=== PATIENT | male | born 2000 | race Caucasian/White ===

== ENCOUNTER 2019-05-08 21:21 | Inpatient (IN) | payer OTHER ==
[~2019-05-08] VITALS: Ht 182.9 cm; Wt 78.0 kg
[2019-05-08 22:04] VITALS: BP_SYST 147
--- NOTE | 2019-05-08 22:11 | NUR ---
Pt placed to ER waiting room in stable condition.
--- NOTE | 2019-05-08 23:04 | NUR ---
Patient to ER bed 05 to gown for evaluation. Side rails up.
--- NOTE | 2019-05-08 23:05 | NUR ---
Pt brought to ED by girlfriend. Pt Alert and Oreinted x4. Pt states that his tongue began to hurt and swell on thursday of this week. (approx 3 days ago). Pt states that his tongue began to swell and hurt, developing a thick white film over the past two days. pt states that his gums are also starting to bleed. Pt Denied any use of chemicals or smoking of any substance. Pt denies chest pain, sob or difficulty breathing, N/V, Diarrhea, Dizziness, blurred vision. Pt denies any other medical complaint at this time. Pt Vss, Resting in ED bed comfortably, Will continue to monitor.
--- NOTE | 2019-05-09 00:10 | NUR ---
Dr. Ruiz at bedside.
[2019-05-09] MEDS ORDERED: LIDOCAINE VISCOUS 2%, 15 ML UDC MM ONE (00:15)
--- NOTE | 2019-05-09 01:07 | NUR ---
Pt states mild relief from Oral pain after medication admin of viscous lidocaine.
[2019-05-09] MEDS ORDERED: KETOROLAC TROMETHAMINE 30 MG VIAL IVP ONE (01:45)
[2019-05-09] MEDS ORDERED: NACL 0.9% 1,000 ML IV ONE (01:45)
--- NOTE | 2019-05-09 01:57 | NUR ---
ANGELIQUE Foreman bedside assisting with Blood Draw and IV Start
[2019-05-09 02:20] LABS: MEAN CORPUSCULAR VOLUME 92 fL (79.0-98.0)
[2019-05-09 02:30] LABS: CALCIUM 9.2 mg/dL (8.4-11.0)
--- NOTE | 2019-05-09 02:30 | NUR ---
Pt states pain has been moderately relieved. Pt Resting Comfortably in ED bed. Provided new warm blanket
[2019-05-09 02:31] LABS: BASOPHILS % (AUTO) 0.1 % (0.0-2.0); EOSINOPHILS % (AUTO) 0.4 % (0.0-4.0); HEMATOCRIT 49.5 % (36-54); HEMOGLOBIN 16.8 g/dL (14.0-18.0); LYMPHOCYTES # (AUTO) 1.1 K/uL (1.0-5.5); LYMPHOCYTES % (AUTO) 11.6 % (20.5-51.5); MEAN CORPUSCULAR HEMOGLOBIN 31 pg (27-31); MEAN CORPUSCULAR HGB CONC 34 % (32-36); MONOCYTES % (AUTO) 10.3 % (1.7-9.3); NEUTROPHILS # (AUTO) 7.5 K/uL (1.8-7.7); NEUTROPHILS % (AUTO) 77.6 % (40.0-70.0); PLATELET COUNT (AUTO) 148 K/uL (130-430); RED CELL DISTRIBUTION WIDTH 13.1 % (9.0-15.0); WHITE BLOOD COUNT (AUTO) 9.6 K/uL (4.5-11.0)
[2019-05-09 02:35] LABS: ALBUMIN 4.4 g/dL (3.4-4.8); CREATININE 0.9 mg/dL (0.55-1.30); POTASSIUM 3.9 mmol/L (3.5-5.1)
[2019-05-09] MEDS ORDERED: cefTRIAXone 1 GM IVPB PREMIX 50 ML IV ONE (03:30)
[2019-05-09] MEDS ORDERED: FLUCONAZOLE 100 MG TABLET (DIFLUCAN) PO ONE (03:30)
--- NOTE | 2019-05-09 04:00 | NUR ---
Dr. Ruiz bedside for Pt update
[2019-05-09] MEDS ORDERED: ACETAMINOPHEN 325 MG TABLET PO PRN (05:15)
--- NOTE | 2019-05-09 05:21 | NUR ---
Patient will be admitted to care of Dr. Panchal. Admitted to Med/Surg unit. Will go to room 101-b. Belongings list completed. Summary report printed. Report will be given at bedside.
--- NOTE | 2019-05-09 05:36 | NUR ---
ADMISSION NOTE Received patient from ER via epifanio, received report from ANGELIQUE whitley. Patient admitted with diagnosis of dysphagia. Patient oriented to hospital routine, call light, toileting and safety-patient verbalized understanding.
[2019-05-09 05:37] VITALS: BP_SYST 100
--- NOTE | 2019-05-09 05:56 | NUR ---
Consultation Paged Reason for consultation: Infection Was consult called: Y Person who was notified: Eileen Consulting Physician: Dr. Ocampo Electrode Turner And Finisher Ordering Physician: Dr. Panchal
--- NOTE | 2019-05-09 07:30 | NUR ---
rn opening note Report was endorsed by night nurse. Patient appears to be resting with both eyes closed no signs of any distress, breathing is equal and non labored. Patient has all safety precautions in place. Family member at bed side. will continue to monitor.
[2019-05-09 08:14] VITALS: BP_SYST 104
[2019-05-09] MEDS ORDERED: FLUCONAZOLE 200 mg/ NS 100 ML IV SCH (09:00)
--- NOTE | 2019-05-09 09:48 | NUR ---
Medication Patient scheduled medication given per order. Patient is awake and alert, sitting up in bed. Patient states he could not eat breakfast due to mouth pain. Patient has no signs of shortness of breath. Patient educated director of collections and archives light for assistance, call light is with patient. Collected throat culture as ordered and sent to lab. patient has no other complaints at this time. no other needs at time. will continue to monitor.
--- NOTE | 2019-05-09 11:44 | NUR ---
rn rounding Patient is awake and alert sitting up in bed no signs of any distress, breathing is equal and non labored. Patient states no complaints at this time. Patient educated to use call light for assistance. Call light is with patient. patient has no other needs at this time. will continue to monitor.
[2019-05-09 12:05] VITALS: BP_SYST 105
--- NOTE | 2019-05-09 13:00 | NUR ---
MEDICATION Patients scheduled medication given as ordered. Patient is sitting up in bed no signs of distress, breathing is equal and non labored. Patient states unable to eat due to mouth soreness. Patient educated sec reporting consultant light for assistance. Patient states no other needs at this time. will continue to monitor.
[2019-05-09] MEDS: AMPICILLIN SODIUM 1 GM in NS 50 ML IV SCH ×3 (13:01→23:37)
--- NOTE | 2019-05-09 15:00 | NUR ---
rn rounding Patient is awake and alert, laying in bed no signs of any distress, breathing is equal and non labored. All safety precautions in place. will continue to monitor. Call light is with patient. educated to sommer for assistance.
--- NOTE | 2019-05-09 16:43 | NUR ---
rn rounding Patient moved to room 109 C. Patient is awake and alert sitting up in bed, family member at bed side. Patient educated internal communications intern light for assistance. Patient has call light with patient. Patient has all safety precautions in place. Patient has no other needs at this time. will continue to monitor.
[2019-05-09 16:55] VITALS: BP_SYST 110
--- NOTE | 2019-05-09 17:45 | NUR ---
MEDICATION/DR. PAREDES Patient is awake and alert no signs of any distress,breathing is equal and non labored. Patient is unable to eat due to mouth sore ness. Patient has sister at bed side. Patients scheduled mediaciton given per order.
[2019-05-09] MEDS ORDERED: NYSTATIN 500,000 UNITS/5 ML UDC PO ONE (18:00)
[2019-05-09] MEDS ORDERED: ACETAMINOPHEN 650 MG/20.3 ML UDC PO ONE (18:15)
[2019-05-09] MEDS: D5LR 1,000 ML IV SCH (18:36)
--- NOTE | 2019-05-09 18:49 | NUR ---
RN CLOSING NOTE PATIENT IS AWAKE AND ALERT, SITTING UP IN BED. MEDICATION GIVEN ORDERED. ALSO PROVIDED PATIENT WITH URINE SAMPLE CUP. PATIENT EDUCATED TO USE CALL LIGHT FOR ASSISTANCE. CALL LIGHT IS WITH PATIENT. PATIENT HAS NO OTHER NEEDS AT THIS TIME.
--- NOTE | 2019-05-09 19:30 | NUR ---
Opening notes Received report. Patient is resting in bed. No signs of distress noted. Breathing even and unlabored. IV patent and intact, infusing fluids. Updated patient on plan of care. Patient is to have nothing by mouth after midnight for abdominal ultrasound in the morning. A urine sample also needs to be collected. Patient verbalized understanding. Supplies for urine sample provided. Call light with the patient. Safety precautions in place.
[2019-05-09 20:00] VITALS: BP_SYST 100
[2019-05-09] MEDS: ACYCLOVIR 400 MG TABLET PO SCH (20:30)
--- NOTE | 2019-05-09 21:00 | NUR ---
Medications given. Educated the action and side effects of medications. Patient verbalized understanding and tolerated well. Call light with the patient. Safety precautions in place.
[2019-05-09] MEDS: NYSTATIN 500,000 UNITS/5 ML UDC PO SCH (23:38)
[2019-05-10] MEDS: LIDOCAINE VISCOUS 2%, 15 ML UDC MM PRN ×4 (00:11→21:29)
--- NOTE | 2019-05-10 00:15 | NUR ---
Pain Patient complain of pain to mouth. Offered patient prn pain medication. Educated the action and side effects of medications. Patient states medication helps and patient is able to talk drink water. No other needs. Call light with the patient. Safety precautions in place.
[2019-05-10 01:33] VITALS: BP_SYST 107
--- NOTE | 2019-05-10 02:00 | NUR ---
Resting Patient resting in bed, on laptop. no signs of distress noted. Breathing even and unlabored. IVF infusing well. Call light with the patient. Safety precautions in place.
--- NOTE | 2019-05-10 04:00 | NUR ---
Sleeping No signs of distress noted. Breathing even and unlabored. IVF infusing well. Call light with the patient. Safety precautions in place.
[2019-05-10] MEDS: AMPICILLIN SODIUM 1 GM in NS 50 ML IV SCH ×4 (05:32→23:55)
[2019-05-10] MEDS: NYSTATIN 500,000 UNITS/5 ML UDC PO SCH ×4 (05:34→23:55)
[2019-05-10] MEDS: D5LR 1,000 ML IV SCH ×3 (05:34→18:48)
--- NOTE | 2019-05-10 06:29 | NUR ---
Closing notes Patient is resting comfortably in bed. No signs of distress noted. Breathing even and unlabored. IV patent and intact, infusing fluids. reminded patient about collecting urine sample. Patient verbalized understanding. All needs met throughout the shift. Call light with the patient. Safety precautions in place. Will endorse care to day shift RN.
[2019-05-10 07:37] LABS: ALBUMIN 3.5 g/dL (3.4-4.8); CALCIUM 8.5 mg/dL (8.4-11.0); CREATININE 0.84 mg/dL (0.55-1.30); PHOSPHORUS 4.6 mg/dL (2.7-4.5); POTASSIUM 3.8 mmol/L (3.5-5.1); TOTAL BILIRUBIN 0.9 mg/dL (0.0-1.0)
[2019-05-10 07:44] LABS: BASOPHILS % (AUTO) 0.3 % (0.0-2.0); EOSINOPHILS # (AUTO) 0.1 K/uL (0.0-0.4); EOSINOPHILS % (AUTO) 1.5 % (0.0-4.0); HEMATOCRIT 42.4 % (36-54); HEMOGLOBIN 14.4 g/dL (14.0-18.0); LYMPHOCYTES # (AUTO) 2.4 K/uL (1.0-5.5); LYMPHOCYTES % (AUTO) 35.4 % (20.5-51.5); MEAN CORPUSCULAR HEMOGLOBIN 31 pg (27-31); MEAN CORPUSCULAR HGB CONC 34 % (32-36); MEAN CORPUSCULAR VOLUME 92 fL (79.0-98.0); MONOCYTES # (AUTO) 0.6 K/uL (0.0-1.0); MONOCYTES % (AUTO) 8.8 % (1.7-9.3); NEUTROPHILS # (AUTO) 3.7 K/uL (1.8-7.7); PLATELET COUNT (AUTO) 139 K/uL (130-430); RED BLOOD CELL COUNT(AUTO) 4.61 MIL/uL (4.2-6.2); RED CELL DISTRIBUTION WIDTH 13.3 % (9.0-15.0)
--- NOTE | 2019-05-10 07:44 | NUR ---
OPENING NOTES: RECEIVED PATIENT FROM PICTURE HANGER NURSE. PATIENT IS SLEEPING. FAMILY AT BEDSIDE. NO SIGNS OF DISTRESS OR SHORTNESS OF BREATH NOTED. IV SITE IS PATENT WITH NO SIGNS OF INFILTRATION. PATIENT IS TOLERATING OXYGEN AT ROOM AIR. PATIENT IN STABLE CONDITION. SAFETY AND FALL PRECAUTIONS ARE IN PLACE. BED LOCKED IN LOWEST POSITION WITH CALL LIGHT IN REACH. WILL CONTINUE TO MONITOR PATIENT FOR ANY CHANGES.
[2019-05-10 07:58] LABS: WHITE BLOOD COUNT (AUTO) 6.9 K/uL (4.5-11.0)
--- NOTE | 2019-05-10 08:15 | NUR ---
MD ROUNDS: DR. FORD MAKING ROUNDS. AWARE OR PATIENT'S CONDITIONS. NEW ORDERS GIVEN.
[2019-05-10 08:20] VITALS: BP_SYST 110
[2019-05-10 09:07] LABS: ERYTHROCYTE SEDIMENTATION RATE 6 MM/HR (0-15)
[2019-05-10] MEDS: MICAFUNGIN SODIUM 100 MG in NS 100 ML IV SCH (09:13)
[2019-05-10] MEDS: ACYCLOVIR 400 MG TABLET PO SCH ×2 (09:22→21:29)
[2019-05-10] MEDS: ACETAMINOPHEN 650 MG/20.3 ML UDC PO SCH ×3 (09:22→21:29)
[2019-05-10 10:10] LABS: BILIRUBIN,URINE 1+ (NEGATIVE); BLOOD, URINE NEGATIVE (NEGATIVE); CLARITY/URINE CLEAR (CLEAR); COLOR,URINE YELLOW (YELLOW); GLUCOSE,URINE NEGATIVE (NEGATIVE); KETONES,URINE TRACE (NEGATIVE); LEUKOCYTE ESTERASE ,URINE NEGATIVE (NEGATIVE); NITRITE, URINE NEGATIVE (NEGATIVE); PROTEIN URINE NEGATIVE (NEGATIVE)
--- NOTE | 2019-05-10 10:15 | NUR ---
RN ROUNDS: PATIENT IS AWAKE AND ALERT x4. FAMILY AT BEDSIDE. PATIENT STATES HIS PAIN IS FEELING BETTER. NO SIGNS OF DISTRESS OR SHORTNESS OF BREATH NOTED. PATIENT IN STABLE CONDITION. WILL CONTINUE TO MONITOR PATIENT FOR ANY CHANGES.
[2019-05-10 10:23] LABS: BARBITURATE, URINE NEGATIVE (NEG <=200); BENZODIAZEPINE, URINE NEGATIVE (NEG <=150); CANNABINOID, URINE NEGATIVE (NEG <=50); COCAINE, URINE NEGATIVE (NEG <=150); METHAMPHETAMINES SCREEN,URINE NEGATIVE (NEG <=500); OPIATE, URINE NEGATIVE (NEG <=100); PHENCYCLIDINE SCREEN,URINE NEGATIVE (NEG <=25); UR TRICYCLIC ANTIDEPRESSANTS NEGATIVE (NEG <=300); URINE AMPHETAMINE NEGATIVE (NEG <=500); URINE METHADONE NEGATIVE (NEG <=200); URINE OXYCODONE SCREEN NEGATIVE (NEG <=100); URINE PROPOXYPHENE SCREEN NEGATIVE (NEG <=300)
[2019-05-10 12:09] VITALS: BP_SYST 104
--- NOTE | 2019-05-10 12:44 | NUR ---
RN ROUNDS: PATIENT IS AWAKE AND ALERT x4. NO SIGNS OF DISTRESS OR SHORTNESS OF BREATH NOTED. IV SITE IS PATENT WITH NO SIGNS OF INFILTRATION. PATIENT IN STABLE CONDITION. WILL CONTINUE TO MONITOR PATIENT FOR ANY CHANGES.
--- NOTE | 2019-05-10 14:10 | NUR ---
RN ROUNDS: PATIENT IS AWAKE AND ALERT x4 LAYING IN BED. NO SIGNS OF DISTRESS OR SHORTNESS OF BREATH NOTED. PATIENT IN STABLE CONDITION. WILL CONTINUE TO MONITOR PATIENT FOR ANY CHANGES.
[2019-05-10] MEDS ORDERED: FLU VACC QS2019-20 36MOS UP/PF 60 MCG/0.5 ML SYRINGE I.M. PRN (14:30)
--- NOTE | 2019-05-10 14:41 | NUR ---
Dietitian Recommendations * Recommend pureed, vegan diet * ONS Ensure Enlive, Ensure Clear, and Glucerna are not indicated as pt prefers not to consume animal-based products BERNIE, RD Please refer to Nutrition Assessment for details. Addendum: 05/10/19 at [address] Amended: Links added.
[2019-05-10 15:37] VITALS: BP_SYST 95
--- NOTE | 2019-05-10 16:00 | NUR ---
RN ROUNDS: PATIENT IS AWAKE AND ALERT x4 SITTING UP IN BED. FAMILY AT BEDSIDE. PATIENT STATES HE IS HAVING PAIN 6/10 ON HIS TONGUE. PAIN MEDICATION GIVEN. NO SIGNS OF DISTRESS OR SHORTNESS OF BREATH NOTED. PATIENT IN STABLE CONDITION. WILL CONTINUE TO MONITOR PATIENT FOR ANY CHANGES. Addendum: 05/10/19 at 1603 by Liz Bonds RN IV SITE IS INFILTRATED. WILL ATTEMPT TO PUT ANOTHER IV IN.
--- NOTE | 2019-05-10 16:20 | NUR ---
IV REINSERTION: IV SITE BECAME INFILTRATED. IV CATHETER REMOVED AND INTACT. NO ACTIVE BLEEDING NOTED. NEW IV IN LEFT AC 20 G. PATIENT TOLERATED IT WELL. SUCCESSFUL AFTER 1 ATTEMPT. ASEPTIC TECHNIQUE USED. IV SITE IS PATENT WITH NO SIGNS OF INFILTRATION AND FLUSHES. WILL CONTINUE TO MONITOR.
--- NOTE | 2019-05-10 16:40 | NUR ---
MD ROUNDS: DR. PAREDES MAKING ROUNDS. AWARE OF PATIENT'S CONDITION. NEW ORDERS GIVEN.
[2019-05-10] MEDS ORDERED: MULTIVIT-MINERALS/FERROUS GLUC 15 ML UDC PO ONE (17:15)
[2019-05-10] MEDS: ERGOCALCIFEROL 8000 UNITS/ML ORAL SOLUTION, 60 ML BOTTLE PO SCH (18:33)
--- NOTE | 2019-05-10 18:38 | NUR ---
CLOSING NOTES: PATIENT IS AWAKE AND ALERT x4 LAYING IN BED. NO SIGNS OF DISTRESS OR SHORTNESS OF BREATH NOTED. PATIENT IS TOLERATING OXYGEN AT ROOM AIR. IV SITE IS PATENT WITH NO SIGNS OF INFILTRATION. PATIENT IN STABLE CONDITION. SAFETY AND FALL PRECAUTIONS ARE IN PLACE. BED LOCKED IN LOWEST POSITION WITH CALL LIGHT IN REACH. WILL ENDORSE PATIENT CARE TO ONCOMING SEED CLEANING MACHINE OPERATOR NURSE.
--- NOTE | 2019-05-10 19:30 | NUR ---
Opening notes Received report. Patient is resting in bed, no signs of distress noted. Breathing even and unlabored. IV patent and intact, infusing fluids. Patient verbalizes he is having a better day. Patient did not eat any dinner, states he is going to try eat later. No needs at this time. Call light with the patient. Safety precautions in place.
[2019-05-10 20:00] VITALS: BP_SYST 112
--- NOTE | 2019-05-10 21:39 | NUR ---
Medications Scheduled and prn pain medication given. Educated the action and side effects of medications. Patient verbalized understanding and tolerated well. No signs of allergic reaction noted. Offered patient flu shot at this time. Patient states he wants flu shot upon discharge. No other needs. call light with the patient. Safety precautions in place.
[2019-05-11] VITALS: BP_SYST 106
--- NOTE | 2019-05-11 | NUR ---
Resting Patient resting, no signs of distress noted. Breathing even and unlabored. IV ABX hung. Patient noted with red rash on left thigh that patient states started from early that afternoon. Patient states it is a little itchy, but does not hurt. Will inform MDs. No other needs. Call light with the patient. Safety precautions in place.
--- NOTE | 2019-05-11 02:30 | NUR ---
Sleeping No signs of distress noted. Breathing even and unlabored. IVF infusing well. call light with the patient. Safety precautions in place.
--- NOTE | 2019-05-11 04:30 | NUR ---
Sleeping No signs of distress noted. breathing even and unlabored. IVF infusing well. No needs at this time. Call light with the patient. Safety precautions in place.
[2019-05-11] MEDS: AMPICILLIN SODIUM 1 GM in NS 50 ML IV SCH (06:00)
[2019-05-11] MEDS: NYSTATIN 500,000 UNITS/5 ML UDC PO SCH ×2 (06:00→12:53)
[2019-05-11] MEDS: D5LR 1,000 ML IV SCH (06:00)
--- NOTE | 2019-05-11 06:52 | NUR ---
Closing notes Patient resting in bed. No signs of distress noted. Breathing even and unlabored. IV patent and intact, infusing fluids. All needs met throughout the shift. Call light with the patient. Safety precautions in place. Will endorse care to day shift RN.
--- NOTE | 2019-05-11 07:30 | NUR ---
OPENING NOTE Patient resting in the bed with eyes closed. No acute distress. IV intact to LAC, no redness, no swelling, no drainage. On D5 LR at 120ml/hr, infusing well. Safety measure maintained. Call light within reached. Bed locked in low position, side rails up. Will continue to monitor.
[2019-05-11 07:45] VITALS: BP_SYST 97
[2019-05-11] MEDS ORDERED: MULTIVIT-MINERALS/FERROUS GLUC 15 ML UDC PO SCH (09:00)
--- NOTE | 2019-05-11 09:12 | NUR ---
BATHROOM Patient ambulated to bathroom in steady gait. Safety measure maintained. Continue to monitor.
--- NOTE | 2019-05-11 09:45 | NUR ---
RECEIVED THE CALL BACK FROM AMAURI BECKWITH Received the call back from Dr. Beltran, on-call for Dr. Ocampo, reported to Dr. Beltran patient received the first dose of Mycamine IVPB yesterday and noted the rash on the left thigh last night, denied of itching. Asked id she wanted to continue to give Mycamine this morning. Dr. Beltran stated "continue to give the Mycamine but infuse the rate in half, if it runs 1 hour, make it runs 2 hour."
[2019-05-11] MEDS: ACETAMINOPHEN 650 MG/20.3 ML UDC PO SCH (10:28)
[2019-05-11] MEDS: ERGOCALCIFEROL 8000 UNITS/ML ORAL SOLUTION, 60 ML BOTTLE PO SCH (10:29)
[2019-05-11] MEDS: MICAFUNGIN SODIUM 100 MG in NS 100 ML IV SCH (10:29)
[2019-05-11] MEDS: ACYCLOVIR 400 MG TABLET PO SCH (10:29)
--- NOTE | 2019-05-11 10:55 | NUR ---
ROUND Patient resting in the bed. No acute distress. IV intact, IV antibiotic infusing well. Safety measure maintained. Call light within reached. Bed locked in low position, side rails up. Continue to monitor.
[2019-05-11 11:30] VITALS: BP_SYST 101
--- NOTE | 2019-05-11 12:30 | NUR ---
SEEN AND EXAMINED BY SOPHIE JACKSON WITH DISCHARGE ORDER.
[2019-05-11] MEDS ORDERED: FLUC200T PO (13:09)
[2019-05-11 13:13] VITALS: BP_SYST 101
[2019-05-11] MEDS ORDERED: NYST50002 PO (13:15)
[2019-05-11] MEDS ORDERED: [UNRECOGNIZED DRUG - OTHER] (13:19)
[2019-05-11] MEDS ORDERED: LIDO15SO2 MM (13:21)
[2019-05-11] MEDS ORDERED: MULT-1117 PO (13:24)
--- NOTE | 2019-05-11 14:32 | NUR ---
D/C Patient Patient given medication reconciliation form and D/C instructions. Exit Care provided. Patient verbalized understanding. MD discussed with patient the results and treatment provided. Ambulatory with steady gait for discharge to home. Patient in stable condition, ID band removed. IV catheter removed, intact and dressing applied, no active bleeding. Rx of Diflucan, Nystatin Susp, Viscous Lidocaine, and multiple vitamin with mineral given. Patient educated on pain management. All belongings sent with patient.
== END 2019-05-11 14:32 | disposition home or self-care (01) | DRG 153 ==
LOC: SED 21:21 → SMU 05-09 05:12
PROVIDERS: ADMIT Internal Medicine; ATTEND Internal Medicine
DX: J02.9 Acute pharyngitis, unspecified (principal); B37.0 Candidal stomatitis; B27.90 Infectious mononucleosis, unspecified without complication; K14.0 Glossitis; R13.10 Dysphagia, unspecified
CPT/HCPCS: 36415; 76700-TC; 80053; 80307; 81003; 82306; 82785; 83735-TC; 84100-TC; 85025; 85651-TC; 86308-TC; 86403; 86592; 86694; 87040-TC; 87070-TC; 87081; 96361; 96365; 96375; 99285; J0290; J0696; J1450; J1885; J2001; J2248; J7120; Q2037